=== PATIENT | female | born 1940 | race Caucasian/White ===

== ENCOUNTER 2018-03-12 18:08 | Emergency (ER) | payer OTHER, MEDICARE ==
[2018-03-12 18:36] VITALS: BP 147/75; PULSE 69; TEMP 97.6; BMI 22.6
[2018-03-12 18:50] LABS: BASO % 0.7 % (0-2.0); EOS % 4.9 % (0-4.5); HEMATOCRIT 37.9 % (32.4-45.2); HEMOGLOBIN 12.7 GM/dL (10.7-15.3); LYMPH % 26.9 % (8-40); MCH 29.2 pg (25.7-33.7); MCHC 33.4 g/dl (32.0-36.0); MEAN CELL VOLUME 87.4 fl (80-96); MEAN PLT VOLUME 7.6 fl (7.5-11.1); MONO % 8.3 % (3.8-10.2); NEUT % 59.2 % (42.8-82.8); PLATELET COUNT 227 K/MM3 (134-434); RBC 4.34 M/mm3 (3.60-5.2); RDW 15.6 % (11.6-15.6); WHITE BLOOD COUNT 7.1 K/mm3 (4.0-10.0)
--- NOTE | 2018-03-12 18:51 | PDOC ---
History of Present Illness - General History Source: Patient Exam Limitations: No Limitations - History of Present Illness Initial Comments: 03/12/18 18:53 The patient is a 77 year old female with a significant PMH of HTN and HLD who presents to the emergency department with a sharp pressure on her left side of her chest approximately 6 hours ago. The patient states she was playing golf when she had a sudden onset pinching sensation like a bee sting on the left breast. The patient reports measuring her blood pressure at home which usually runs in the 110s/60s but noticed it was elevated to the 160's systolic. The patient took an aspirin at 4PM. The patient reports the chest pain has resolved and has no other complaints today. The patient states her family has a history of cardiac disease. The patient denies shortness of breath, headache and dizziness. Denies fever, chills, nausea, vomit, diarrhea and constipation. Denies dysuria, frequency, urgency and hematuria. Allergies: NKA Past surgical history: None reported. Social history: No reported alcohol, drug, or cigarette use. <Maribell Addison - Last Filed: 03/12/18 18:56> <Rin Pathak - Last Filed: 03/12/18 19:55> <Yue Jiménez - Last Filed: 03/13/18 10:23> - General Chief Complaint: Chest Pain Stated Complaint: CHEST PAIN Time Seen by Provider: 03/12/18 18:30 Past History <Maribell Addison - Last Filed: 03/12/18 18:56> <Rin Pathak - Last Filed: 03/12/18 19:55> - Past Medical History Asthma: Yes COPD: No HTN: Yes Hypercholesterolemia: Yes Other medical history: lower back pain,hemorrhoids,diverticulosis,colonic polyps , - Suicide/Smoking/Psychosocial Hx Smoking History: Never smoked Have you smoked in the past 12 months: No Information on smoking cessation initiated: No Hx Alcohol Use: Yes (socially) Drug/Substance Use Hx: No Substance Use Type: Alcohol <Yue Jiménez - Last Filed: 03/13/18 10:23> - Past Medical History Allergies/Adverse Reactions: Allergies Allergy/AdvReac Type Severity Reaction Status Date / Time No Known Allergies Allergy Verified 03/12/18 18:34 Home Medications: Ambulatory Orders Amlodipine Besylate [Norvasc -] 5 mg PO DAILY 03/12/18 Citalopram Hydrobromide [Celexa -] 20 mg PO DAILY 03/12/18 Rosuvastatin [Crestor -] 10 mg PO ASDIR 03/12/18 Review of Systems - Review of Systems Able to Perform ROS?: Yes Comments:: 03/12/18 18:54 GENERAL/CONSTITUTIONAL: No fever or chills. No weakness. HEAD, EYES, EARS, NOSE AND THROAT: No change in vision. No ear pain or discharge. No sore throat. CARDIOVASCULAR: (+) Chest pain. No shortness of breath. RESPIRATORY: No cough, wheezing, or hemoptysis. GASTROINTESTINAL: No nausea, vomiting, diarrhea or constipation. GENITOURINARY: No dysuria, frequency, or change in urination. MUSCULOSKELETAL: No joint or muscle swelling or pain. No neck or back pain. SKIN: No rash NEUROLOGIC: No headache, vertigo, loss of consciousness, or change in strength/ sensation. ENDOCRINE: No increased thirst. No abnormal weight change. HEMATOLOGIC/LYMPHATIC: No anemia, easy bleeding, or history of blood clots. ALLERGIC/IMMUNOLOGIC: No hives or skin allergy. <Maribell Addison - Last Filed: 03/12/18 18:56> *Physical Exam - Vital Signs Last Vital Signs Temp Pulse Resp BP Pulse Ox 97.6 F 69 18 147/75 100 03/12/18 18:20 03/12/18 18:20 03/12/18 18:20 03/12/18 18:20 03/12/18 18:20 <Maribell Addison - Last Filed: 03/12/18 18:56> - Vital Signs Last Vital Signs Temp Pulse Resp BP Pulse Ox 97.6 F 69 18 147/75 100 03/12/18 18:20 03/12/18 18:20 03/12/18 18:20 03/12/18 18:20 03/12/18 18:20 <Rin Pathak - Last Filed: 03/12/18 19:55> - Vital Signs Last Vital Signs Temp Pulse Resp BP Pulse Ox 97.6 F 69 18 147/75 100 03/12/18 18:20 03/12/18 18:20 03/12/18 18:20 03/12/18 18:20 03/12/18 18:20 - Physical Exam Comments: GENERAL: Awake, alert, and fully oriented, in no acute distress HEAD: No signs of trauma EYES: PERRLA, EOMI, sclera anicteric, conjunctiva clear ENT: Auricles normal inspection, hearing grossly normal, nares patent, oropharynx clear without exudates. Moist mucosa NECK: Normal ROM, supple, no lymphadenopathy, JVD, or masses LUNGS: Breath sounds equal, clear to auscultation bilaterally. No wheezes, and no crackles HEART: Regular rate and rhythm, normal S1 and S2, no murmurs, rubs or gallops ABDOMEN: Soft, nontender, normoactive bowel sounds. No guarding, no rebound. No masses EXTREMITIES: Normal range of motion, no edema. No clubbing or cyanosis. No cords, erythema, or tenderness NEUROLOGICAL: Cranial nerves II through XII grossly intact. Normal speech, normal gait SKIN: Warm, Dry, normal turgor, no rashes or lesions noted. <Yue Jiménez - Last Filed: 03/13/18 10:23> Heart Score/ECG Review - ECG Impressions Comment:: EKG read 18:22- NSR 69 bpm, no acute ST/T changes <Yue Jiménez - Last Filed: 03/13/18 10:23> ED Treatment Course - LABORATORY CBC & Chemistry Diagram: 03/12/18 18:45 03/12/18 18:45 - ADDITIONAL ORDERS Additional order review: 03/12/18 18:45 RBC 4.34 MCV 87.4 MCHC 33.4 RDW 15.6 MPV 7.6 Neutrophils % 59.2 Lymphocytes % 26.9 Monocytes % 8.3 Eosinophils % 4.9 H Basophils % 0.7 <Maribell Addison - Last Filed: 03/12/18 18:56> - LABORATORY CBC & Chemistry Diagram: 03/12/18 18:45 03/12/18 18:45 - ADDITIONAL ORDERS Additional order review: Laboratory Results 03/12/18 18:45 Sodium 138 Potassium 4.2 Chloride 102 Carbon Dioxide 27 Anion Gap 9 BUN 17 Creatinine 0.6 Creat Clearance w eGFR > 60 Random Glucose 89 Calcium 8.7 Total Bilirubin 0.3 AST 26 ALT 31 Alkaline Phosphatase 89 Creatine Kinase 156 Creatine Kinase Index 1.1 CK-MB (CK-2) 1.844 Troponin I < 0.02 Total Protein 7.4 Albumin 3.8 03/12/18 18:45 RBC 4.34 MCV 87.4 MCHC 33.4 RDW 15.6 MPV 7.6 Neutrophils % 59.2 Lymphocytes % 26.9 Monocytes % 8.3 Eosinophils % 4.9 H Basophils % 0.7 <Rin Pathak - Last Filed: 03/12/18 19:55> - LABORATORY CBC & Chemistry Diagram: 03/12/18 18:45 03/12/18 18:45 - RADIOLOGY Radiology Studies Ordered: Category Date Time Status CHEST X-RAY PORTABLE* [RAD] Stat Radiology 03/12/18 18:30 Taken <Yue Jiménez - Last Filed: 03/13/18 10:23> Medical Decision Making - Medical Decision Making 03/12/18 18:51 Pt with chest pain described as "pinching" that started 6 hours ago, resolved. Atypical symptoms- will obtain labwork including troponin. If negative, will DC home. <Yue Jiménez - Last Filed: 03/13/18 10:23> *DC/Admit/Observation/Transfer <Maribell Addison - Last Filed: 03/12/18 18:56> - Discharge Dispostion Decision to Admit order: No <Rin Pathak - Last Filed: 03/12/18 19:55> <Yue Jiménez - Last Filed: 03/13/18 10:23> Diagnosis at time of Disposition: Chest pain Qualifiers: Chest pain type: unspecified Qualified Code(s): R07.9 - Chest pain, unspecified - Discharge Dispostion Disposition: HOME Condition at time of disposition: Stable - Patient Instructions Printed Discharge Instructions: DI for Atypical Chest Pain, DI for Chest Pain
[2018-03-12 19:19] LABS: ALBUMIN 3.8 g/dl (3.4-5.0); ANION GAP 9 (8-16); BILIRUBIN,TOTAL 0.3 mg/dL (0.2-1.0); BLOOD UREA NITROGEN 17 mg/dL (7-18); CALCIUM 8.7 mg/dL (8.5-10.1); CHLORIDE 102 mmol/L (98-107); CO2 27 mmol/L (21-32); CREATININE 0.6 mg/dL (0.55-1.02); GLUCOSE,RANDOM 89 mg/dL (74-106); POTASSIUM 4.2 mmol/L (3.5-5.1); SGOT/AST 26 U/L (15-37); SGPT/ALT 31 U/L (12-78); SODIUM 138 mmol/L (136-145); TOT PROT 7.4 g/dl (6.4-8.2)
[2018-03-12 19:21] LABS: ALK PHOS 89 U/L (45-117)
--- NOTE | 2018-03-13 22:10 | EKG ---
Test Reason : Blood Pressure : / mmHG Vent. Rate : 069 BPM Atrial Rate : 069 BPM P-R Int : 162 ms QRS Dur : 066 ms QT Int : 408 ms P-R-T Axes : 058 005 011 degrees QTc Int : 437 ms NORMAL SINUS RHYTHM SEPTAL INFARCT , AGE UNDETERMINED ABNORMAL ECG NO PREVIOUS ECGS AVAILABLE Confirmed by BLAIR POE MD ([id number]) on 03/13/2018 10:09:32 PM Referred By: Confirmed By:BLAIR POE MD
== END 2018-03-12 20:11 | disposition home or self-care (01) ==
LOC: JER 18:08
DX: R07.89 Other chest pain (principal); I10 Essential (primary) hypertension; E78.00 Pure hypercholesterolemia, unspecified; Z87.19 Personal history of other diseases of the digestive system
CPT/HCPCS: 36415; 71045-TC-FY; 80053; 82550; 82553; 84484; 85025; 93005; 93010; 99282-25